=== PATIENT | female | born 1985 | race African-American/Black ===

== ENCOUNTER 2019-02-23 18:34 | Emergency (ER) | payer SELFPAY ==
--- NOTE | 2019-02-23 19:40 | RAD ---
Abdomen one view HISTORY: Abdominal pain. FINDINGS: Large amount stool throughout the colon and rectum. Small bowel gas pattern is nonspecific. Small flocculent opacities throughout the colon are likely related to ingested material. IMPRESSION: Constipation.
[2019-02-23 20:04] LABS: Bilirubin Negative (Negative); Blood, Urine Trace (Negative); Glucose, Urine (Dipstick) Negative (Negative); Leukocyte Large (Negative); Nitrite Negative (Negative); Protein, Urine (Dipstick) Negative (Neg-Trace); Urobilinogen 0.2 mg/dL (Less than 2)
[2019-02-23 20:08] LABS: Clarity SL HAZY (Clear); Pregnancy Test - Urine (BHCG) Negative (Negative); Pregu Control Background? CLEAR/WHITE (CLR/WHITE); Pregu Control Bar Appear? YES (CONTROL BAR); Specific Gravity 1.015 (1.002-1.036)
[2019-02-23 20:16] LABS: Bacteria/HPF 2+ HPF (None Seen); RBC/HPF 0-3 HPF (0-3); Trichomonas/HPF 3+ HPF (None Seen)
== END 2019-02-23 20:45 | disposition home or self-care (01) ==
LOC: NAV ERS 18:34
DX: K59.00 Constipation, unspecified (principal); A59.01 Trichomonal vulvovaginitis; F17.210 Nicotine dependence, cigarettes, uncomplicated; F41.9 Anxiety disorder, unspecified
CPT/HCPCS: 74018; 81003; 81015; 81025